=== PATIENT | male | born 1990 | race Caucasian/White ===

== ENCOUNTER 2018-02-07 09:30 | Emergency (ER) | payer SELFPAY ==
[~2018-02-07] VITALS: Ht 185.4 cm; Wt 90.4 kg
[2018-02-07] MEDS ORDERED: METOCLOPRAMIDE 5 MG/ML, 2ML IVPush ONE (10:30)
[2018-02-07] MEDS ORDERED: FAMOTIDINE 20 MG/2 ML IVP ONE (10:30)
[2018-02-07] MEDS ORDERED: SODIUM CHLORIDE 0.9% 1,000ML IVBOLUS ONE (10:30)
[2018-02-07] MEDS ORDERED: SODIUM CHLORIDE FLUSH 10ML SYR IVF ONE (10:30)
[2018-02-07 10:39] LABS: BASOPHILS % (AUTO) 0 % (0-1); EOSINOPHILS # (AUTO) 0.09 x10^3/uL (0-0.4); EOSINOPHILS % (AUTO) 2 % (1-7); LYMPHOCYTES # (AUTO) 0.45 x10^3/uL (1-3.4); LYMPHOCYTES % (AUTO) 8 % (22-44); MD NO; MEAN CORPUSCULAR HEMOGLOBIN 30.5 pg (27.5-34.5); MEAN CORPUSCULAR HGB CONC 35.2 g/dL (33.2-36.2); MEAN CORPUSCULAR VOLUME 86.6 fL (81-97); MEAN PLATELET VOLUME 8.2 fL (7.4-10.4); MONOCYTES # (AUTO) 0.58 x10^3/uL (0.2-0.8); MONOCYTES % (AUTO) 10 % (2-9); NEUTROPHILS # (AUTO) 4.82 x10^3/uL (1.8-6.8); NEUTROPHILS % (AUTO) 81 % (42-75); PLATELET COUNT 159 x10^3/uL (130-400); RED BLOOD COUNT 5.57 x10^6/uL (4.38-5.82); RED CELL DISTRIBUTION WIDTH 13.6 % (9.4-14.8)
[2018-02-07 10:50] LABS: ALANINE AMINOTRANSFERASE 25 U/L (12-78); ANION GAP 8 mmol/L (5-15); CALCIUM 8.6 mg/dL (8.5-10.1); CHLORIDE 106 mmol/L (98-107)
[2018-02-07 10:52] LABS: ALKALINE PHOSPHATASE 67 U/L (45-117); BILIRUBIN,TOTAL 1.9 mg/dL (0.2-1.0); TOTAL PROTEIN 8.1 g/dL (6.4-8.2)
[2018-02-07] MEDS ORDERED: DICYCLOMINE 10 MG/ML, 2ML ONE (11:29)
[2018-02-07] MEDS ORDERED: ONDANSETRON ODT 4 MG ONE (11:29)
[2018-02-07] MEDS ORDERED: MAALOX/HYOSCYAMINE/LIDOCAINE 45 ML BTL ONE (11:29)
[2018-02-07] MEDS ORDERED: ONDANSETRON ODT 4 MG PO ONE (11:30)
[2018-02-07] MEDS ORDERED: DICYCLOMINE 10 MG/ML, 2ML IM ONE (11:30)
[2018-02-07] MEDS ORDERED: MAALOX/HYOSCYAMINE/LIDOCAINE 45 ML BTL PO ONE (11:30)
[2018-02-07] MEDS ORDERED: DICYCLOMINE 20 MG TABLET ONE (11:42)
[2018-02-07] MEDS ORDERED: DICYCLOMINE 20 MG TABLET PO ONE (12:00)
[2018-02-07 12:27] VITALS: BP 112/69
== END 2018-02-07 12:29 | disposition home or self-care (01) ==
LOC: ED 12:23
DX: K52.89 Other specified noninfective gastroenteritis and colitis (principal); R10.84 Generalized abdominal pain
CPT/HCPCS: 36415; 76700; 80053; 83690; 85025; 99285; Q0162